=== PATIENT | female | born 1995 | race Caucasian/White ===

== ENCOUNTER 2016-09-27 22:59 | Emergency (ER) | payer SELFPAY ==
[~2016-09-27] VITALS: Ht 165.1 cm; Wt 52.0 kg
[2016-09-27 23:00] VITALS: BP 139/83; PULSE 120; RESP 16; TEMP 97.9; O2SAT 99
== END 2016-09-28 00:21 | disposition left against medical advice (07) ==
LOC: NED 22:59
DX: R10.9 Unspecified abdominal pain (principal)
CPT/HCPCS: 99281